=== PATIENT | female | born 1965 | race Caucasian/White ===

== ENCOUNTER 2017-06-02 07:18 | Day surgery (SDC) | payer OTHER ==
[2017-06-02] MEDS ORDERED: LACTATED RINGERS 1,000 ML IV ONE (07:23)
[2017-06-02] MEDS ORDERED: SCOPOLAMINE PATCH TOP ONE (07:59)
[2017-06-02] MEDS ORDERED: BUPIVACAINE 0.25% PF 30 ML VIAL SUBQ ONE ×2 (08:13)
[2017-06-02] MEDS ORDERED: LIDOCAINE 1%-EPI 1:100000 30 ML MDV SUBQ ONE ×2 (08:14)
[2017-06-02] MEDS ORDERED: PROPOFOL 200 MG/20 ML VIAL IVP ONE (09:11)
[2017-06-02] MEDS ORDERED: LIDOCAINE-MPF 2% 5 ML VIAL IM ONE (09:11)
[2017-06-02] MEDS ORDERED: fentaNYL 100 MCG/2 ML VIAL IVP ONE (09:11)
[2017-06-02] MEDS ORDERED: MIDAZOLAM 2 MG/2 ML VIAL IVP ONE (09:11)
[2017-06-02 10:20] VITALS: BP 132/80
--- NOTE | 2017-06-02 11:28 | OPERATIVE REPORT ---
DATE OF SURGERY: 06/02/2017 00:00:00 PREOPERATIVE DIAGNOSIS: Left carpal tunnel syndrome. POSTOPERATIVE DIAGNOSIS: Left carpal tunnel syndrome. NAME OF PROCEDURE: Left carpal tunnel release. SURGEON: Meredith Mccoy MD ANESTHESIA: Local, MAC, with Rory Herrera. INDICATIONS FOR SURGERY: The patient is a 52-year-old female with progressive carpal tunnel syndrome of the left hand, with hand pain, numbness, tingling, and a nonresponse to nonoperative measures. The recommendation and plan is for carpal tunnel release. DESCRIPTION OF OPERATIVE PROCEDURE: The patient was taken to the operating room and was given a MAC a nesthetic and local infiltration of her carpal tunnel area. Her hand was sterilely prepped and draped in the standard fashion. The surgical approach was a 1-1/4 inch incision in the palm in line with th e radial aspect of the 4th finger. This was taken through skin and subcutaneous tissue down to the tr ansverse carpal ligament, which was divided in line with the incision. The contents of canal were ins pected. The extent of release was carried distal to the level of the superficial arch and taken proxi mal to the level of the distal wrist flexion crease. The area was irrigated, and closure was with 4-0 nylon interrupted in the skin. Sterile dressings were applied. The patient was taken to the recovery room in stable condition. ESTIMATED BLOOD LOSS: Minimal. COMPLICATIONS: None. SPONGE AND NEEDLE COUNTS: Correct. JOB #: [id number] EXT JOB #:[id number]
== END 2017-06-02 07:19 | disposition home or self-care (01) ==
LOC: SDS 07:18
PROVIDERS: ATTEND Orthopaedic Surgery
PROC: 01N50ZZ Release Median Nerve, Open Approach (ICD-10-PCS; principal; 2017-06-02 08:15)
DX: G56.02 Carpal tunnel syndrome, left upper limb (principal)
CPT/HCPCS: 64721; J3490; J7120

== ENCOUNTER 2017-12-11 18:58 | Outpatient (CLI) | payer MEDICARE, OTHER ==
[2017-12-11 19:33] LABS: BASOPHILS # (AUTO) 0.1 10^3/uL (0.0-0.1); BASOPHILS % (AUTO) 0.5 %; LYMPHOCYTES # (AUTO) 1.9 10^3/uL (1.5-3.5); LYMPHOCYTES % (AUTO) 10.3 %; MEAN CORPUSCULAR HEMOGLOBIN 28.6 pg (27.0-31.0); MEAN CORPUSCULAR VOLUME 86.7 fL (81.0-99.0); MEAN PLATELET VOLUME 7.5 fL (7.9-10.8); MONOCYTES # (AUTO) 0.8 10^3/uL (0.0-1.0); MONOCYTES % (AUTO) 4.2 %; PLT - PLATELET COUNT 368 10^3/uL (130-450); RED BLOOD COUNT 4.21 10^6/uL (4.20-5.40); RED CELL DISTRIBUTION WIDTH 12.8 % (12.0-15.0); WHITE BLOOD COUNT 18.8 x10^3/uL (4.8-10.8)
--- NOTE | 2017-12-11 21:30 | XRAY Report ---
EXAM: CHEST RADIOGRAPHY EXAM DATE: 12/11/2017 07:26 PM. CLINICAL HISTORY: PNEUMONIA. Fever and dry cough for one week. COMPARISON: None. TECHNIQUE: 2 views. FINDINGS: Lungs/Pleura: No focal opacities evident. No pleural effusion. No pneumothorax. Normal volumes. Mediastinum: Heart and mediastinal contours are unremarkable. Other: Mild multilevel midthoracic degenerative disk disease. IMPRESSION: Normal 2-view chest radiography. Lungs are clear. RADIA The call report notification system was initiated by Dr. Ethan Nguyen at 20:38 hrs on 12/11/17. The above findings were discussed with Dr Savage Dr by Dr. Ethan Nguyen at 21:28 hrs on 12/11/17. Referring Provider Line: [phone] SITE ID: [id number]
--- NOTE | 2017-12-11 21:30 | XRAY Preliminary Report ---
Exam: XR CHEST 2 VIEW X-RAY IMPRESSION: Normal 2-view chest radiography. Lungs are clear. RADIA The call report notification system was initiated by Dr. Ethan Nguyen at 20:38 hrs on 12/11/17. The above findings were discussed with Dr Savage Dr by Dr. Ethan Nguyen at 21:28 hrs on 12/11/17. SITE ID: [id number]
== END 2017-12-11 18:59 | disposition home or self-care (01) ==
LOC: DI 18:58
PROVIDERS: ATTEND Specialist
DX: J18.9 Pneumonia, unspecified organism (principal)
CPT/HCPCS: 36415; 71046; 85025

== ENCOUNTER 2018-02-18 15:33 | Emergency (ER) | payer MEDICARE, OTHER ==
[2018-02-18] MEDS ORDERED: ACETAMINOPHEN 1,000 MG/100 ML 100 ML IV STA (15:39)
[2018-02-18] MEDS ORDERED: IOPAMIDOL-300 100 ML VIAL ONE (15:42)
--- NOTE | 2018-02-18 15:43 | ED Physician Documentation ---
PD HPI Fall - Stated complaint Stated Complaint: FALL/[id number] PX - History obtained from History obtained from: Patient, EMS - History of Present Illness Mechanism of injury: Slipped (She was up on a ladder and fell, she was painting her own house. She landed on her neck and back and has severe neck and back pain, also right hip and ankle pain. She has a history of addiction issues and declines narcotic pain medication on initial evaluation. She is on no its own. She denies head injury and thinks she remembers the whole thing but cannot remember if she remembers for sure.) Review of Systems Ten Systems: 10 systems reviewed and negative Constitutional: denies: Fever, Chills Cardiac: denies: Chest pain / pressure, Palpitations Respiratory: denies: Dyspnea, Cough GI: denies: Abdominal Pain, Nausea, Vomiting PD PAST MEDICAL HISTORY - Past Medical History Cardiovascular: Murmur Respiratory: Sleep apnea, CPAP use Endocrine/Autoimmune: None GI: None : None HEENT: Chronic vision loss, Chronic sinusitis Psych: Depression, Anxiety, Panic attacks, Post traumatic stress disorder, Claustrophobia Musculoskeletal: Osteoarthritis, Fibromyalgia, Chronic back pain, Other Derm: Eczema - Past Surgical History Ortho: Shoulder arthroplasty, Other /STORES DESPATCH HAND: Other - Present Medications Home Medications: Ambulatory Orders Medication Instructions Recorded Confirmed Trazodone HCl 100 mg PO QPM 05/29/17 05/29/17 Venlafaxine HCl [Venlafaxine HCl 150 mg PO DAILY 05/29/17 05/29/17 ER] Naloxone HCl [Evzio] 0.4 mg IJ 06/02/17 - Allergies Allergies/Adverse Reactions: Allergies Allergy/AdvReac Type Severity Reaction Status Date / Time Sulfa (Sulfonamide Allergy Anaphylaxis Verified 02/18/18 15:48 Antibiotics) PD ED PE NORMAL - Vitals Vital signs reviewed: Yes - General General: Alert and oriented X 3, Other (She is uncomfortable, she is in a c- collar on a backboard. The c-collar is maintained pending imaging giving tenderness and she is logrolled off the board during exam.) - HEENT HEENT: PERRL, EOMI - Neck Neck: Other (Severe mid and low C-spine tenderness) - Cardiac Cardiac: RRR, No murmur - Respiratory Respiratory: No respiratory distress, Clear bilaterally - Abdomen Abdomen: Normal bowel sounds, Soft, Non tender - Back Back: Other (Very tender over the lower thoracic and upper lumbar spine) - Extremities Extremities: Other (Mildly tender over the lateral right hip and complains of posterior buttock pain with internal and external rotation of the right hip. Mild tenderness of the right ankle, but no visible injury/swelling.) - Neuro Neuro: Alert and oriented X 3, Other (She has good wax ball knock out worker strength in the upper extremities but complains of tingling in both.) Eye Opening: Spontaneous Motor: Obeys Commands Verbal: Oriented GCS Score: 15 - Psych Psych: Normal mood, Normal affect Results - Vitals Vitals: Vital Signs - 24 hr 02/18/18 15:34 Temperature 36.2 C L Heart Rate 96 Respiratory 16 Rate Blood Pressure 137/99 H O2 Saturation 100 Oxygen O2 Source Room air - Labs Labs: Laboratory Tests 02/18/18 02/18/18 02/18/18 15:47 15:47 15:47 WBC 11.4 H RBC 4.33 Hgb 12.8 Hct 37.5 MCV 86.6 MCH 29.6 MCHC 34.2 RDW 13.2 Plt Count 372 MPV 8.2 Neut # (Auto) 5.9 Lymph # (Auto) 4.6 H Dickson # (Auto) 0.8 Eos # (Auto) 0.0 Baso # (Auto) 0.1 Absolute Nucleated RBC 0.00 Nucleated RBC % 0.0 PT 11.8 INR 1.0 Sodium 138 Potassium 3.0 L Chloride 109 Carbon Dioxide 17 L Anion Gap 12.0 BUN 21 H Creatinine 0.8 Estimated GFR (MDRD) 75 L Glucose 161 H Calcium 9.2 Total Bilirubin 0.3 AST 39 ALT 24 Alkaline Phosphatase 77 Total Protein 7.4 Albumin 3.9 Globulin 3.5 Albumin/Globulin Ratio 1.1 Lipase 33 Ethyl Alcohol < 5.0 - Rads (name of study) CT Leyva Scan, with T/L and R ankle and Hip XRs Radiology: EMP read contemporaneously (Only notable for: Acute fracture of T12 with extension through the posterior elements in keeping with posterior tension band disruption type fracture (AO spine type B2) though no definite widening of the facets or interspinous space. Recommend MRI for further evaluation. ) PD MEDICAL DECISION MAKING - ED course ED course: 53-year-old woman presents after fall from height with severe neck and back pain , also a little bit of hip and ankle pain. She had a CT leyva scan with reconstructions of the T and L-spine and x-rays of the right hip and ankle. The only major injury was a burst fracture of T12 with retropulsion. She will need to be transferred to a trauma center with spine surgery and she was accepted by Dr. Wilson at [facility] at 5:20 PM and cobras were completed. - Sepsis Event Vital Signs: Vital Signs - 24 hr 02/18/18 15:34 Temperature 36.2 C L Heart Rate 96 Respiratory 16 Rate Blood Pressure 137/99 H O2 Saturation 100 Oxygen O2 Source Room air Departure - Departure Disposition: 02 Transfer Acute Care Hosp Clinical Impression: Burst fracture of T12 vertebra Injury of head and neck Qualifiers: Encounter type: initial encounter Qualified Code(s): S09.90XA - Unspecified injury of head, initial encounter Injury of back Qualifiers: Encounter type: initial encounter Qualified Code(s): S39.92XA - Unspecified injury of lower back, initial encounter Concussion Qualifiers: Encounter type: initial encounter Loss of consciousness presence/duration: without LOC Qualified Code(s): S06.0X0A - Concussion without loss of consciousness, initial encounter Fall from ladder Qualifiers: Encounter type: initial encounter Qualified Code(s): W11.XXXA - Fall on and from ladder, initial encounter Condition: Serious
[2018-02-18 16:00] LABS: BASOPHILS # (AUTO) 0.1 10^3/uL (0.0-0.1); BASOPHILS % (AUTO) 0.7 %; EOSINOPHILS % (AUTO) 0.2 %; HGB - HEMOGLOBIN 12.8 g/dL (12.0-16.0); LYMPHOCYTES # (AUTO) 4.6 10^3/uL (1.5-3.5); LYMPHOCYTES % (AUTO) 40.5 %; MEAN CORPUSCULAR HEMOGLOBIN 29.6 pg (27.0-31.0); MEAN CORPUSCULAR HGB CONC 34.2 g/dL (32.0-36.0); MEAN CORPUSCULAR VOLUME 86.6 fL (81.0-99.0); MEAN PLATELET VOLUME 8.2 fL (7.9-10.8); MONOCYTES # (AUTO) 0.8 10^3/uL (0.0-1.0); MONOCYTES % (AUTO) 7.3 %; NEUTROPHILS # (AUTO) 5.9 10^3/uL (1.5-6.6); NEUTROPHILS % (AUTO) 51.3 %; PLT - PLATELET COUNT 372 10^3/uL (130-450); RED BLOOD COUNT 4.33 10^6/uL (4.20-5.40); RED CELL DISTRIBUTION WIDTH 13.2 % (12.0-15.0); WHITE BLOOD COUNT 11.4 x10^3/uL (4.8-10.8)
[2018-02-18 16:03] LABS: PT - PROTHROMBIN TIME 11.8 secs (9.9-12.6)
[2018-02-18 16:26] LABS: ALBUMIN 3.9 g/dL (3.2-5.5); ALBUMIN/GLOBULIN RATIO 1.1 (1.0-2.2); ALKALINE PHOSPHATASE 77 IU/L (42-121); ALT ALANINE AMINOTRANSFERASE 24 IU/L (10-60); AST ASPARTATE AMINOTRANSFERASE 39 IU/L (10-42); BILIRUBIN,TOTAL 0.3 mg/dL (0.2-1.0); BUN - BLOOD UREA NITROGEN 21 mg/dL (6-20); CALCIUM 9.2 mg/dL (8.5-10.3); CARBON DIOXIDE - CO2 17 mmol/L (21-32); CHLORIDE 109 mmol/L (101-111); CREATININE 0.8 mg/dL (0.4-1.0); GFR - MDRD 75 (>89); GLUCOSE 161 mg/dL (70-100); LIPASE 33 U/L (22-51); SODIUM 138 mmol/L (135-145); TOTAL PROTEIN 7.4 g/dL (6.7-8.2)
[2018-02-18] MEDS ORDERED: MORPHINE 10 MG/ML VIAL IVP STA ×3 (16:38→18:22)
[2018-02-18] MEDS ORDERED: SODIUM CHLORIDE 0.9% 1,000 ML IV ONE (16:39)
[2018-02-18] MEDS ORDERED: POTASSIUM CHLOR 10 MEQ/100 ML 10 MEQ/100 ML BAG IV STA (16:39)
--- NOTE | 2018-02-18 16:42 | CT Report ---
Procedure Date: 02/18/2018 Accession Number: [id number] / [id number] Procedure: CT - Head W/O CPT Code: FULL RESULT: EXAM: CT HEAD EXAM DATE: 02/18/2018 04:16 PM. CLINICAL HISTORY: Fall from height, neck/back pain, right hip. back pain. COMPARISON: None. TECHNIQUE: Multiaxial CT images were obtained from the foramen magnum to the vertex. Reformats: Coronal. IV contrast: None. In accordance with CT protocol optimization, one or more of the following dose reduction techniques were utilized for this exam: automated exposure control, adjustment of mA and/or KV based on patient size, or use of iterative reconstructive technique. FINDINGS: Parenchyma: No intraparenchymal hemorrhage. No evidence of mass, midline shift, or CT findings of infarction. Ellis-white differentiation is distinct. Extraaxial Spaces: Normal for age. No subdural or epidural collections identified. Ventricles: Normal in size and position. Sinuses and Orbits: Imaged paranasal sinuses, orbits, and mastoids show no significant abnormality. Bones: No evidence of fracture or calvarial defect. Other: None. IMPRESSION: Normal head CT. RADIA
[2018-02-18] MEDS ORDERED: IOPAMIDOL-300 100 ML VIAL IVP ONE (16:47)
--- NOTE | 2018-02-18 16:48 | CT Report ---
Procedure Date: 02/18/2018 Accession Number: [id number] / [id number] Procedure: CT - Cervical Spine W/O CPT Code: FULL RESULT: EXAM: CT CERVICAL SPINE WITHOUT CONTRAST DATE: 02/18/2018 04:18 PM. HISTORY: Fall from height, neck and back pain, right hip. COMPARISONS: None. TECHNIQUE: Thin-section axial images were acquired of the cervical spine without contrast. Post-processing: Coronal and sagittal reformats. Other: None. In accordance with CT protocol optimization, one or more of the following dose reduction techniques were utilized for this exam: automated exposure control, adjustment of mA and/or KV based on patient size, or use of iterative reconstructive technique. FINDINGS: Alignment: No scoliosis or spondylolisthesis. Bones: No fracture or bone lesion. Interspace Levels/Facets: C1-C2: Unremarkable. C2-C3: Unremarkable. C3-C4: Unremarkable. C4-C5: Normal caliber. Moderate degenerative changes right C4-C5 facet with moderate right C4-C5 bony neural foraminal compromise. C5-C6: Moderate to marked narrowing. 2 mm degenerative retrolisthesis. Old moderate central disk herniation. Moderate degenerative changes C5-C6 facets. Mild central spinal canal stenosis. Moderate bilateral C5-C6 bony neural foraminal compromise. C6-C7: Unremarkable. C7-T1: Normal caliber. Marked degenerative changes, synovial thickening, consistent with chronic synovitis right C7-T1 facet. Musculature: Normal. No fatty atrophy. Other: The paravertebral and prevertebral soft tissues are unremarkable. The lung apices are clear. IMPRESSION: No acute bony abnormality. RADIA
--- NOTE | 2018-02-18 16:57 | XRAY Report ---
Procedure Date: 02/18/2018 Accession Number: [id number] / [id number] Procedure: XR - Ankle 3 View RT CPT Code: FULL RESULT: EXAM: RIGHT ANKLE RADIOGRAPHY EXAM DATE: 02/18/2018 04:35 PM. CLINICAL HISTORY: Fall from height, neck/back pain, right hip. back pain. COMPARISON: None. TECHNIQUE: 3 views. FINDINGS: Bones: Normal. No fractures or bone lesions. Joints: Normal. No effusion. No subluxations. The ankle mortise is normally aligned. Soft Tissues: Mild soft tissue swelling over the lateral malleolus and anterior ankle. IMPRESSION: No acute osseous abnormality. RADIA
--- NOTE | 2018-02-18 16:59 | XRAY Report ---
Procedure Date: 02/18/2018 Accession Number: [id number] / [id number] Procedure: XR - Hip w/Pelvis 2-3V RT CPT Code: FULL RESULT: EXAM: RIGHT HIP AND PELVIS RADIOGRAPHY EXAM DATE: 02/18/2018 04:35 PM. HISTORY: Fall from height, neck/back pain, right hip, back pain. COMPARISONS: Same day CT of the abdomen and pelvis with contrast. TECHNIQUE: 1 view of the pelvis and 1 view of the hip. FINDINGS: Bones: Femoral positioning is suboptimal. However. No displaced fracture. No suspicious focal osseous lesion. Findings corroborated with already performed CT of the abdomen and pelvis. Joints: The bilateral hip, pubis symphysis, and sacroiliac joints are preserved. Soft Tissues: Unremarkable. Excreted contrast present within the renal collecting systems, ureters and urinary bladder from recent CT. IMPRESSION: Normal pelvis and hip radiography. RADIA
--- NOTE | 2018-02-18 17:03 | CT Report ---
Procedure Date: 02/18/2018 Accession Number: [id number] / [id number] Procedure: CT - Chest W/ CPT Code: FULL RESULT: EXAM: CT CHEST EXAM DATE: 02/18/2018 04:32 PM. CLINICAL HISTORY: Fall from height, neck/back pain, right hip, back pain. COMPARISONS: CERVICAL SPINE W/O 02/18/2018. TECHNIQUE: Routine helical CT imaging was performed through the chest. IV contrast: 100 cc Isovue-300. This is the total amount of contrast utilized for the CT scans of the chest, abdomen and pelvis. Reconstructions: Coronal and sagittal. In accordance with CT protocol optimization, one or more of the following dose reduction techniques were utilized for this exam: automated exposure control, adjustment of mA and/or KV based on patient size, or use of iterative reconstructive technique. FINDINGS: Lungs/Pleura: No nodules, bronchial thickening, consolidation, or edema. Pulmonary vasculature is normal. No pericardial or pleural effusion. No pneumothorax. Mediastinum: Normal. No adenopathy or masses. The heart and great vessels are normal. Bones: Acute burst fracture T12 involving the superior aspect, with 4 mm retrolisthesis of a fracture fragment without significant central spinal canal compromise. 30% loss of height anteriorly, 10% loss of height posteriorly. Hairline fracture through the base of the right T12 superior to the facet. Hairline fracture involving the superior cortex proximal right T12 lamina. Visualized Abdomen: Unremarkable. Other: None. IMPRESSION: Acute burst fracture T12 involving the anterior, middle and posterior bony columns. Critical findings discussed with Dr. Daly at 1702, 02/28/2018. RADIA
--- NOTE | 2018-02-18 17:10 | CT Report ---
Procedure Date: 02/18/2018 Accession Number: [id number] / [id number] Procedure: CT - Abdomen/Pelvis W/ CPT Code: FULL RESULT: EXAM: CT ABDOMEN AND PELVIS EXAM DATE: 02/18/2018 04:29 PM. CLINICAL HISTORY: Fall from height, neck/back pain, right hip pain. COMPARISONS: None. TECHNIQUE: Routine helical CT imaging was performed through the abdomen and pelvis. IV contrast: 100 mL Isovue 300. This is the total amount of contrast utilized for the CT scans of the chest, abdomen and pelvis. Enteric contrast: No. Reconstructions: Coronal and sagittal. In accordance with CT protocol optimization, one or more of the following dose reduction techniques were utilized for this exam: automated exposure control, adjustment of mA and/or KV based on patient size, or use of iterative reconstructive technique. FINDINGS: Lung Bases: Unremarkable. Liver: Normal. No masses. Gallbladder/Bile Ducts: Unremarkable. Spleen: Normal. Pancreas: Normal. Adrenal Glands: Normal. Kidneys: Normal. Several small cysts bilaterally. No masses or hydronephrosis. Peritoneal Cavity/Bowel: Normal. No free fluid, free air or adenopathy. No masses or acute inflammatory process. The appendix is well visualized and normal. Pelvic Organs: Normal. Very small amount of free cul-de-sac fluid. The bladder and visualized pelvic organs are within normal limits. Vasculature: No aneurysms or other significant abnormality. Bones: Acute mild wedging burst fracture T12 with anterior, middle and posterior bone column involvement. Other: None. IMPRESSION: 1. T12 burst fracture. Bony detail is optimum on the lung sequence chest CT. Please see separately dictated chest CT report as regards such. 2. Otherwise, unremarkable exam. RADIA
--- NOTE | 2018-02-18 17:11 | CT Report ---
Procedure Date: 02/18/2018 Accession Number: [id number] / [id number] Procedure: CT - Thoracic Spine W/O CPT Code: FULL RESULT: EXAM: CT THORACIC SPINE WITHOUT CONTRAST EXAM DATE: 02/18/2018 04:37 PM. CLINICAL HISTORY: Fall from height, neck/back pain, right hip. back pain. COMPARISONS: Concurrent CT lumbar spine. Concurrent CT chest abdomen and pelvis with contrast.. TECHNIQUE: Thin-section axial images were acquired of the thoracic spine from C7 to L1 without contrast. Post-processing: Coronal and sagittal reformats. Other: None. IV Contrast: None. In accordance with CT protocol optimization, one or more of the following dose reduction techniques were utilized for this exam: automated exposure control, adjustment of mA and/or KV based on patient size, or use of iterative reconstructive technique. FINDINGS: Alignment: No scoliosis or spondylolisthesis. Bones: Incomplete 2-column burst fracture of T12 vertebral body involving the superior endplate. Height loss of approximately 25% diffusely throughout the vertebral body, though slightly more pronounced anteriorly. Bony retropulsion of approximately 4 mm. This causes at least mild narrowing of the osseous spinal canal to 10 mm AP dimension, from a normal 13 mm at this level (4/130). There is also transverse plane extension through right T12 superior facet which articulates with T11 facet. No definite widening of the facet joint, however. There is also posterior column extension on the left, posterior to the facet joint without significant displacement (6/54). No definite widening of the interspinous space, though finding is suspicious for a posterior tension band disruption injury (AO spine type B2). No additional fractures demonstrated. Minimal disk height loss and anterior marginal osteophytes from T3 to T9. Disk Levels/Facets: Minimal disk height loss and anterior marginal osteophytes from T3 to T9. No significant canal or foraminal stenosis other than at T12 where there is bony retropulsion and mild canal stenosis. Musculature: Unremarkable. Other: Visualized lungs and abdominal cavity are unremarkable. Minimal posterior mediastinal hematoma surrounding the T12 vertebral body fracture. IMPRESSION: Acute fracture of T12 with extension through the posterior elements in keeping with posterior tension band disruption type fracture (AO spine type B2) though no definite widening of the facets or interspinous space. Recommend MRI for further evaluation. RADIA The above findings were discussed with Juan J Daly by Dr. Maxime Greer at 17:06 hrs on 02/18/18.
--- NOTE | 2018-02-18 17:16 | CT Report ---
Procedure Date: 02/18/2018 Accession Number: [id number] / [id number] Procedure: CT - Lumbar Spine W/O CPT Code: FULL RESULT: EXAM: CT LUMBAR SPINE WITHOUT CONTRAST EXAM DATE: 02/18/2018 04:37 PM. CLINICAL HISTORY: Fall from height, neck/back pain, right hip pain. COMPARISONS: Concurrent CT thoracic spine. Concurrent CT of the abdomen and pelvis with contrast. TECHNIQUE: Thin-section axial images were acquired of the lumbar spine from T12 to S1 without contrast. Post-processing: Coronal and sagittal reformats. Other: None. In accordance with CT protocol optimization, one or more of the following dose reduction techniques were utilized for this exam: automated exposure control, adjustment of mA and/or KV based on patient size, or use of iterative reconstructive technique. FINDINGS: Alignment: No scoliosis or spondylolisthesis. Bones: Five [id number]-atl-xfcapwy lumbar vertebral bodies are present. T12 fracture described on separately dictated CT of the thoracic spine. No lumbar spine fracture. No fracture of the visualized sacrum or pelvic bones. Disk Levels/Facets: T12-L1: Unremarkable. L1-L2: Unremarkable. L2-L3: Unremarkable. L3-L4: Unremarkable. L4-L5: Mild degenerative facet disease. No significant canal or foraminal stenosis. L5-S1: Unremarkable. Musculature: Normal. No fatty atrophy. Other: Nonobstructing right lower pole calculus measures at least 10 mm (3/55). Right lower pole benign exophytic cyst. Mild calcific atherosclerosis. IMPRESSION: 1. No acute osseous abnormality or malalignment of the lumbar spine. 2. T12 fracture described on separately dictated CT thoracic spine. 3. Nonobstructing right nephrolithiasis. Please refer to dedicated CT of the abdomen and pelvis for potential other findings. RADIA
[2018-02-18 17:40] VITALS: BP 129/85
== END 2018-02-18 19:00 | disposition short-term general hospital (02) ==
LOC: ED 15:33
DX: S22.081A Stable burst fracture of T11-T12 vertebra, initial encounter for closed fracture (principal); S39.92XA Unspecified injury of lower back, initial encounter; S06.0X0A Concussion without loss of consciousness, initial encounter; W11.XXXA Fall on and from ladder, initial encounter; Y92.009 Unspecified place in unspecified non-institutional (private) residence as the place of occurrence of the external cause
CPT/HCPCS: 36415; 51702; 70450; 71260; 72125; 72128; 72131; 73502; 73610; 74177; 80053; 83690; 85025; 85610; 96361; 96365; 96367; 96375; 96376; 99284; 99285; J0131; Q9967; 80320

== ENCOUNTER 2018-10-13 08:00 | Outpatient (CLI) | payer MEDICARE, OTHER ==
--- NOTE | 2018-10-13 08:56 | Mammography Report ---
Reason: SCREENING MAMMO Procedure Date: 10/13/2018 Accession Number: [id number] / [id number] Procedure: RASHAD - Screening Mammo w/Heath CPT Code: FULL RESULT: EXAM: Screening Mammo w/Heath DATE: 10/13/2018 8:21 AM CLINICAL HISTORY: Routine screening. No reported personal history of breast cancer. Family history breast cancer in grandmother age 65. TECHNIQUE: (B) - Bilateral Bilateral CC and MLO views were obtained. COMPARISON: 05/14/2015 through 12/06/2009 PARENCHYMAL PATTERN: (D) - The breasts demonstrate heterogeneously dense fibroglandular parenchyma bilaterally. FINDINGS: Bilateral breasts: There are no suspicious masses, calcifications, or areas of distortion. IMPRESSION: Negative examination. BI-RADS category1 RECOMMENDATION: (ANNUAL) - Recommend routine annual screening mammography. BI-RADS CATEGORY: (1) - Negative STANDARD QUALIFYING STATEMENTS: 1. This examination was not reviewed with the aid of Computer-Aided Detection (CAD). 2. A negative or benign imaging report should not preclude biopsy if clinically suspicious findings are present. 3. Dense breasts may obscure an underlying neoplasm. 4. This examination was reviewed with the aid of 3D breast imaging (tomosynthesis).
== END 2018-10-13 08:01 | disposition home or self-care (01) ==
LOC: DI 08:00
DX: Z12.31 Encounter for screening mammogram for malignant neoplasm of breast (principal); Z80.3 Family history of malignant neoplasm of breast
CPT/HCPCS: 77063; 77067

== ENCOUNTER 2021-04-02 16:58 | Outpatient (CLI) | payer OTHER | END 2021-04-02 16:59 | disposition home or self-care (01) | LOC: COV 16:58 | PROVIDERS: ATTEND Family Medicine | DX: R05 Cough (principal); R07.0 Pain in throat; R09.81 Nasal congestion; J34.89 Other specified disorders of nose and nasal sinuses; Z20.822 Contact with and (suspected) exposure to COVID-19 ==

== ENCOUNTER 2021-05-05 20:16 | Emergency (ER) | payer OTHER ==
[2021-05-05 20:23] VITALS: BP 127/84
--- NOTE | 2021-05-05 20:38 | ED Physician Documentation ---
History of Present Illness - Stated complaint Stated Complaint: LT EAR/HEARING AID - Chief complaint Chief Complaint: Heent - History obtained from History obtained from: Patient - Additonal information Additional information: Patient presented with part of her hearing aid stuck in the left ear. Its been there for a day or 2 but was starting to bother her and cause some nausea. No fever, no ear drainage. Review of Systems Ten Systems: 10 systems reviewed and negative Ears: reports: Ear pain, Foreign body. 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 - Present Medications Home Medications: Ambulatory Orders Medication Instructions Recorded Confirmed Trazodone HCl 100 mg PO QPM 05/29/17 05/29/17 Naloxone HCl [Evzio] 0.4 mg IJ 06/02/17 Fluoxetine HCl [Prozac] 80 mg PO DAILY 02/18/18 02/18/18 Gabapentin 300 mg PO DAILY PM 02/18/18 02/18/18 Ciproflox/Dexameth Otic Drops 4 drops OT BID #7.5 ml 05/05/21 [Ciprodex Otic Drops] - Allergies Allergies/Adverse Reactions: Allergies Allergy/AdvReac Type Severity Reaction Status Date / Time Sulfa (Sulfonamide Allergy Anaphylaxis Verified 02/18/18 15:48 Antibiotics) - Social History Does the pt smoke?: Yes Smoking Status: Current every day smoker Does the pt drink ETOH?: No Does the pt have substance abuse?: Yes - Immunizations Immunizations are current?: Yes Results - Vitals Vitals: Vital Signs - 24 hr 05/05/21 20:21 Temperature 36.5 C Heart Rate 78 Respiratory 16 Rate Blood Pressure 127/84 H O2 Saturation 100 Oxygen O2 Source Room air PD MEDICAL DECISION MAKING - ED course Complexity details: d/w patient ED course: Patient presented with piece of her hearing Aid lodged in her left ear Canal. I was able to retrieve this easily with alligator clips. She does have a small abrasion on the ear canal and I have provided her Ciprodex if needed for this if it were to become bothersome. Patient was she did not need to fill this prescription if she had no ear pain or drainage. Departure - Departure Disposition: 01 Home, Self Care Clinical Impression: Foreign body of ear, left Qualifiers: Encounter type: initial encounter Qualified Code(s): T16.2XXA - Foreign body in left ear, initial encounter Condition: Good Prescriptions: Ciproflox/Dexameth Otic Drops [Ciprodex Otic Drops] 4 drops OT BID #7.5 ml Comments: You presented with part of your hearing aid stuck in the left ear. I was able to retrieve this. There is a small abrasion to the left ear canal. I am going to prescribe you antibiotic drops however there is no indication to start these unless you develop ear pain, drainage or swelling. Discharge Date/Time: 05/05/21 20:38
== END 2021-05-05 20:38 | disposition home or self-care (01) ==
LOC: ED 20:16
DX: T16.2XXA Foreign body in left ear, initial encounter (principal); X58.XXXA Exposure to other specified factors, initial encounter; F17.200 Nicotine dependence, unspecified, uncomplicated
CPT/HCPCS: 99282; 99283

== ENCOUNTER 2022-03-06 10:24 | Emergency (ER) | payer OTHER ==
--- NOTE | 2022-03-06 10:51 | XRAY Report ---
PROCEDURE: Chest 1 View X-Ray INDICATIONS: chest pain TECHNIQUE: One view of the chest was acquired. COMPARISON: None FINDINGS: Surgical changes and devices: Thoracolumbar fusion hardware Lungs and pleura: No pleural effusions or pneumothorax. Lungs are clear. Mediastinum: Mediastinal contours appear normal. Heart size is normal. Bones and chest wall: No suspicious bony lesions. Overlying soft tissues appear unremarkable. IMPRESSION: No evidence acute pulmonary process. Reviewed by: Jesn Fan MD on 03/06/2022 10:50 AM PDT Approved by: Jens Fan MD on 03/06/2022 10:50 AM PDT Station ID: [id number]
[2022-03-06] MEDS ORDERED: NIRMATRELVIR/RITONAVIR PREPACK PO STA (12:15)
--- NOTE | 2022-03-06 12:17 | ED Physician Documentation ---
History of Present Illness - Stated complaint Stated Complaint: C+, DIFF BREATHING - Chief complaint Chief Complaint: Resp - Additonal information Additional information: 57-year-old female comes emergency department requesting Paxlovid treatment for her COVID-19 infection. She is doubly vaccinated and doubly boosted. Began getting symptoms 2 days ago and tested positive yesterday with rapid home test. [facility] advised her to come to the ER to get an x-ray ensuring no pneumonia as well as to receive the Paxlovid prescription. Former smoker but does not carry history of asthma or COPD. No history of hypertension. She takes fluoxetine only. She does endorse fevers body aches chills headache and congestion. No vomiting or diarrhea. Review of Systems Constitutional: reports: Fever, Chills, Myalgias, Fatigue Eyes: reports: Loss of vision Ears: reports: Reviewed and negative Nose: reports: Rhinorrhea / runny nose, Congestion Cardiac: denies: Chest pain / pressure, Palpitations Respiratory: reports: Dyspnea, Cough. denies: Hemoptysis, Wheezing GI: reports: Reviewed and negative : reports: Reviewed and negative Skin: reports: Reviewed and negative Musculoskeletal: reports: Reviewed and negative PD PAST MEDICAL HISTORY - Past Medical History Cardiovascular: Murmur Respiratory: Sleep apnea, CPAP use Endocrine/Autoimmune: None GI: None : None HEENT: Chronic vision loss, Chronic sinusitis Psych: Depression, Anxiety, Panic attacks, Post traumatic stress disorder, Claustrophobia Musculoskeletal: Osteoarthritis, Fibromyalgia, Chronic back pain, Other Derm: Eczema - Past Surgical History Ortho: Shoulder arthroplasty, 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 - Present 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 Home Medications: Ambulatory Orders Medication Instructions Recorded Confirmed Trazodone HCl 100 mg PO QPM 05/29/17 05/29/17 Naloxone HCl [Evzio] 0.4 mg IJ 06/02/17 Fluoxetine HCl [Prozac] 80 mg PO DAILY 02/18/18 02/18/18 Gabapentin 300 mg PO DAILY PM 02/18/18 02/18/18 Ciproflox/Dexameth Otic Drops 4 drops OT BID #7.5 ml 05/05/21 [Ciprodex Otic Drops] - Allergies Allergies/Adverse Reactions: Allergies Allergy/AdvReac Type Severity Reaction Status Date / Time Sulfa (Sulfonamide Allergy Anaphylaxis Verified 02/18/18 15:48 Antibiotics) - Social History Does the pt smoke?: Yes Smoking Status: Current every day smoker Does the pt drink ETOH?: No Does the pt have substance abuse?: Yes - Immunizations Immunizations are current?: Yes PD ED PE NORMAL - General General: Alert and oriented X 3, No acute distress, Well developed/nourished - HEENT HEENT: Atraumatic, Ears normal, Moist mucous membranes - Neck Neck: Supple, no meningeal sign, No adenopathy - Cardiac Cardiac: RRR, No murmur - Respiratory Respiratory: No respiratory distress, Clear bilaterally - Abdomen Abdomen: Normal bowel sounds, Soft, Non tender - Back Back: No CVA TTP - Derm Derm: Normal color, Warm and dry - Extremities Extremities: No deformity, No tenderness to palpate, Normal ROM s pain - Neuro Neuro: Alert and oriented X 3, security sergeant 2-12 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 Tested positive yesterday and began getting symptoms 2 days ago. She is both vaccinated and boosted for COVID-19. She is a former smoker but does not carry history of asthma or COPD. No diabetes or hypertension. Cardiopulmonary auscultation was unremarkable. No hypoxia. Chest x-ray is without acute focal findings. Would not meet criteria for inpatient hospitalization. She will be prescribed Paxlovid. Discussed routine care and emergent return precautions of COVID-19 infection. Departure - Departure Disposition: 01 Home, Self Care Clinical Impression: COVID-19 virus infection Condition: Stable Record reviewed to determine appropriate education?: Yes Comments: Roxane you came to the emergency department today to receive Paxlovid which is an FDA approved medication for outpatient treatment of COVID-19 infection. Your chest x-ray today is normal. Your vital signs and oxygen levels are also normal. Please take the Paxlovid as instructed on the packaging. I do recommend that you drink plenty of fluids. You can take Tylenol or ibuprofen for body aches and discomfort. We do recommend that those that have COVID-19 infection sleep on their stomach if they are able to comfortably do so. This can help improve aeration and oxygenation of the posterior lung siddiqi. In general I would treat this like the common cold and flu and I would expect her symptoms to be getting better within the week. You must maintain quarantine for at least 1 week. If you have severe difficulty breathing oxygen levels less than 90% then please return immediately to the ER for second evaluation.
[2022-03-06 12:59] VITALS: BP 121/61
== END 2022-03-06 13:02 | disposition home or self-care (01) ==
LOC: ED 10:24
DX: U07.1 COVID-19 (principal); Z87.891 Personal history of nicotine dependence
CPT/HCPCS: 71045; 99283; J3490

== ENCOUNTER 2022-03-14 07:44 | Outpatient (CLI) | payer OTHER ==
--- NOTE | 2022-03-14 10:16 | Mammography Report ---
BILATERAL DIGITAL SCREENING MAMMOGRAM 3D/2D: 03/14/2022 CLINICAL: Routine screening. Comparison is made to exams dated: 10/13/2018 mammogram and 05/14/2015 mammogram - [facility]. Both breasts are heterogeneously dense, which may obscure small masses (category c / 51-75% glandula r tissue). No significant masses, calcifications, or other findings are seen in either breast. There has been no significant interval change. IMPRESSION: NEGATIVE There is no mammographic evidence of malignancy. A 1 year screening mammogram is recommended. Based on the Tyrer Cuzick model (a risk assessment model) the patients lifetime risk is 14.8% and he r 10 year risk is 5.2%. According to the ACR, ACS, and NCCN guidelines, an annual breast MRI exam jerry ng with mammogram is recommended if the patients lifetime risk is 20% or greater. This exam was interpreted at Station ID: [id number]. NOTE: For mammograms, a report in lay terms will be sent to the patient. Approximately 15% of breast malignancies will not be visualized mammographically. In the management of a palpable breast mass, a negative mammogram must not discourage biopsy of a clinically suspicious lesion. Electronically Signed By: Anoop Ruano M.D. atroman/bandarrad:03/14/2022 08:42:19 ACR BI-RADS Category 1: Negative 3341F PARENCHYMAL PATTERN: (D) - The breast(s) demonstrate(s) heterogeneously dense fibroglandular nancy gomez. BI-RADS CATEGORY: (1) - 1 RECOMMENDATION: (ANNUAL) - Recommend routine annual screening mammography. [id number] 1 year screening LATERALITY: (B)
== END 2022-03-14 07:45 | disposition home or self-care (01) ==
LOC: DI 07:44
PROVIDERS: ATTEND Nurse Practitioner Acute Care
DX: Z12.31 Encounter for screening mammogram for malignant neoplasm of breast (principal)

== ENCOUNTER 2023-03-24 20:18 | Emergency (ER) | payer OTHER ==
[2023-03-24 20:42] VITALS: BP 136/84; O2SAT 99
--- NOTE | 2023-03-24 21:51 | ED Physician Documentation ---
History of Present Illness - Stated complaint Stated Complaint: L FOOT INJ - Chief complaint Chief Complaint: Ext Problem - History obtained from History obtained from: Patient - History of Present Illness Timing: Today Pain level max: 3 Pain level now: 3 - Additonal information Additional information: Patient is a 58-year-old female who presents to the emergency department stating that she was on a ladder today when she jumped off the ladder and accidentally landed on a 2 x 4. Rolled her left foot and ankle. She states increased swelling since that time and bruising to the lateral aspect of the foot and ankle. Worse with walking, better with rest. Took Excedrin prior to arrival. No head, neck, back pain. Not on anticoagulants. 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 - Present Medications Home Medications: Ambulatory Orders Medication Instructions Recorded Confirmed Fluoxetine HCl [Prozac] 80 mg PO DAILY 02/18/18 02/18/18 Gabapentin 300 mg PO DAILY PM 02/18/18 02/18/18 - Allergies Allergies/Adverse Reactions: Allergies Allergy/AdvReac Type Severity Reaction Status Date / Time Sulfa (Sulfonamide Allergy Anaphylaxis Verified 03/24/23 20:37 Antibiotics) - Social History Does the pt smoke?: Yes Smoking Status: Current every day smoker Does the pt drink ETOH?: No Does the pt have substance abuse?: Yes - Immunizations Immunizations are current?: Yes PD ED PE NORMAL - Vitals Vital signs reviewed: Yes - General General: Alert and oriented X 3, No acute distress - HEENT HEENT: Moist mucous membranes - Derm Derm: Warm and dry - Extremities Extremities: Other (L foot/ankle - There is tenderness to palpation over the lateral malleolus and base of the fifth metatarsal. There is ecchymosis and swelling at the same site. Neurovascular intact. No gross deformity.) - Neuro Neuro: Alert and oriented X 3 - Psych Psych: Normal mood, Normal affect Results - Vitals Vitals: Vital Signs - 24 hr 03/24/23 20:31 Temperature 36.7 C Heart Rate 85 Respiratory 18 Rate Blood Pressure 136/84 H O2 Saturation 99 Oxygen O2 Source Room air - Rads (name of study) Left foot x-ray Relevant Findings:: Final report received, See rad report Left ankle x-ray Relevant Findings:: Final report received, See rad report PD Medical Decision Making - ED course Complexity details: reviewed results, re-evaluated patient, considered differential, d/w patient ED course: 50-year-old female with left foot and left ankle pain after fall off ladder. No acute findings on on x-ray. Placed in a walking boot for comfort. Declines pain medication here or for home. Neurovascular intact. She will follow-up with her doctor in 1 week for repeat assessment. Patient counseled regarding signs and symptoms for which I believe and urgent re-evaluation would be necessary. Patient with good understanding of and agreement to plan and is comfortable going home at this time This document was made in part using voice recognition software. While efforts are made to proofread this document, sound alike and grammatical errors may occur. Departure - Departure Disposition: 01 Home, Self Care Clinical Impression: Ankle sprain Qualifiers: Encounter type: initial encounter Involved ligament of ankle: unspecified ligament Laterality: left Qualified Code(s): S93.402A - Sprain of unspecified ligament of left ankle, initial encounter Foot sprain Qualifiers: Encounter type: initial encounter Laterality: left Qualified Code(s): S93.602A - Unspecified sprain of left foot, initial encounter Condition: Good Instructions: ED Sprain Foot, ED Sprain Ankle Follow-Up: your,doctor in 1 week [Other] Comments: Your x-rays do not show any acute abnormality today. You may bear weight as tolerated. Please follow-up with your doctor for further care. Please return if you worsen. You can use Motrin and Tylenol as needed for pain. Forms: PCP List
--- NOTE | 2023-03-24 22:51 | XRAY Report ---
PROCEDURE: Ankle 3 View LT INDICATIONS: FELL/TWISTED L ANKLE TECHNIQUE: 3 views of the ankle were acquired. COMPARISON: None. FINDINGS: Bones: No fractures or dislocations. Ankle mortise is normally aligned. No suspicious bony lesions . Soft tissues: No tibiotalar joint effusion. Achilles tendon appears normal. IMPRESSION: 1. No fracture or dislocation. Reviewed by: Ethan Smyth MD on 03/24/2023 10:50 PM PDT Approved by: Ethan Smyth MD on 03/24/2023 10:50 PM PDT Station ID: [id number]
--- NOTE | 2023-03-24 23:13 | XRAY Report ---
PROCEDURE: Foot 3 View LT INDICATIONS: fall off ladder TECHNIQUE: 3 views of the foot were acquired. Exam online and available for interpretation 03/24/2023 at 10:16 PM. COMPARISON: None. FINDINGS: Bones: No fractures or dislocations. No suspicious bony lesions. Soft tissues: No suspicious soft tissue calcifications or masses. IMPRESSION: 1. No fracture or dislocation. Reviewed by: Ethan Smyth MD on 03/24/2023 11:12 PM PDT Approved by: Ethan Smyth MD on 03/24/2023 11:12 PM PDT Station ID: [id number]
== END 2023-03-24 23:22 | disposition home or self-care (01) ==
LOC: ED 20:18
DX: S93.402A Sprain of unspecified ligament of left ankle, initial encounter (principal); S93.602A Unspecified sprain of left foot, initial encounter; X50.1XXA Overexertion from prolonged static or awkward postures, initial encounter; Y93.39 Activity, other involving climbing, rappelling and jumping off; F17.200 Nicotine dependence, unspecified, uncomplicated
CPT/HCPCS: 99283